=== PATIENT | female | born 1990 | race Caucasian/White ===

== ENCOUNTER → 2018-04-30 09:49 | Outpatient (CLI) | payer SELFPAY ==
[2018-04-30 10:48] VITALS: BP 107/72; PULSE 77; RESP 16; TEMP 36.7; O2SAT 98; BMI 20.2
--- NOTE | 2018-04-30 11:42 | HTC.HP4 ---
- Problem List (1) Von Willebrand disease, type I Status: Chronic Subjective Date of Service:: 04/30/18 Chief Complaint: VWD annual follow-up History of Present Illness: VWD, type I annual follow-up. Give May 2017, needed to use factor due to bladder injury during childbirth, bleeding was severe enough to require blood transfusion. These records not available, requested from [facility]. Health History: Past Medical History Past Medical History: Bleeding disorder Other Past Medical History: WILLEBRANDS Past Surgical History Surgical: section Family History Paternal Past Medical History: Unknown Maternal Past Medical History: Unknown Past Medical History (Last Updated 04/30/18 @ 10:47 by Robyn Mayers) delivery delivered (Acute) Von Willebrand disease (Acute) Family History (Last Updated 04/30/18 @ 10:46 by Robyn Mayers) Brother Hemophilia B Father Hemophilia B Allergies/Adverse Reactions: Allergy/AdvReac Type Severity Reaction Status Date / Time aspirin Allergy Severe Other Verified 02/13/17 10:39 Risk Factors Social History Smoking Status Never smoker Tobacco Risk Data: Tobacco Risk Smoking Status Never smoker Type of tobacco: Smokeless tobacco usage: Items/Day: Year started: Years used: Counseled to quit/cut down: Reason for no counseling performed: Reason for no pharmacotherapy: Tobacco use comments: Passive smoke exposure: Substance Risk Drug use: No Caffeine use [drinks/day]: Alcohol use: No Type of alcohol: Drinks per day: Has patient felt the need to cut down: Has the patient been annoyed by complaints: Has the patient felt guilty about drinking: Has the patient needed an eye manager statistics in the mornings: Comments: Review of Systems Constitutional:: Denies: Fever, Sweats, Weight loss, Appetite change, Chills Cardiovascular:: Denies: Chest pain, Palpitations, Dyspnea on exertion, Orthopnea, PND, Shortness of breath Respiratory: Denies: Cough, Hemoptysis, Shortness of Breath, Wheezing Gastrointestinal:: Denies: Abdominal pain, Nausea, Vomiting, Diarrhea, Constipation, Hematochezia Genitourinary: Denies: Dysuria, Hematuria, 15, Flank pain Musculoskeletal:: Denies: Back pain, Myalgia, Arthralgia Skin: Denies: Rash, Skin Changes, Wounds Neurological:: Denies: Headache, Dizziness, Visual changes, Tinnitus, Hearing loss Psychiatric: Denies: Anxiety, Depression, Homicidal Ideations, Suicidal Ideations Vital Signs Height 4 ft 10.5 in Weight: 44.815 kg Weight in Pounds 98.8 lbs Pulse Ox 98 Temperature 98.1 F Pulse Rate 77 Respiratory Rate 16 Blood Pressure 107/72 Blood Pressure Position Sitting - Physical Exam General: Alert, Oriented x3, No apparent distress HEENT: Atraumatic, PERRLA, EOMI, Normocephalic Oropharynx:: Dry mucosa Neck:: Supple, Trachea midline. Negative for: JVD, bilateral Cardiac:: Regular rate, Regular rhythm, Normal S1, Normal S2. Negative for: Murmur Lungs: Clear to auscultation, Excusion symmetrical. Negative for: Rhonchi, Wheezes Abdomen:: Soft, Non-tender, Non-distended. Negative for: Hepatosplenomegaly Extremities:: Negative for: Cyanosis, Edema Neurological: Neuro grossly intact Skin:: Negative for: Lesions, Rash, Petechiae, Ecchymosis Psychiatric:: Appropriate affect, Euthymic Lymphatics:: Negative for: Cervical lymphadenopathy, Supraclavicular lymphadenopathy, Axillary lymphadenopathy Assessment and Plan VWD annual screening visit. Reviewed: - On-demand therapy. - Appropriate oral hygiene and regular dental care is essential. - An appropriate exercise regimen encouraged for maintenance of a healthy weight, cardiovascular risk reduction, and positive effects on strength, flexibility, balance, joint stabilization, bone density, socialization, and psychological health. - Medicines that increase the risk of bleeding should be avoided namely anticoagulants, aspirin, and other nonsteroidal anti-inflammatory drugs (NSAIDs). - Herbal remedies and [id number] supplements such as fish oil, may increase bleeding risk. - Pain can be treated with local measures (eg, cold packs, immobilization, splinting), and acetaminophen. - Cardiovascular disease prevention : focus on diet, exercise, smoking avoidance, and control of hypertension and hypercholesterolemia. - Planning for invasive procedures and elective surgery. Patient was also evaluated by the Hemophilia multidisciplinary team on site and Dr Frederick via video conferencing. Primary Care Provider: Doc Viera Referring Provider:
--- OUTSIDE RECORDS SUMMARY | 2018-06-15 23:58 | XMS RPT_ITS ---
:1990 Author Organization OHIP Care Team Providers Name Role Phone CORRINA YUNG, DR. KAT García Primary Care Unavailable JESUS COOK DO Attending Unavailable TENISHA CASTANEDA MD Referring Unavailable LORE HERNANDEZ Attending Unavailable CORRINA YUNG, DR. KAT García Primary Care Unavailable CORRINA YUNG, DR. KAT García Primary Care Unavailable DANNI CRENSHAW, ARLETTE Newby Admitting Unavailable DANNI CRENSHAW, ARLETTE Newby Attending Unavailable ELISE FLEMING MD Consulting Unavailable RL SALDANA DO Consulting Unavailable OB, OB CLINIC Consulting Unavailable MERCEDES ARIZA MD Consulting Unavailable ROSANNA YUNG, DR. KEYA Mcintyre Consulting Unavailable KAT HOUSER Primary Care Unavailable Julisa Mast Attending Unavailable Pro, Julisa Attending Unavailable KAT HOUSER Primary Care Unavailable Julisa Mast Consulting Unavailable ALVERTO HECK M.D. Attending Unavailable KIARA JAMES Attending Unavailable KIARA JAMES Consulting Unavailable PROBLEMS PROBLEMS DATE TYPE CONDITION / CODE ATTENDING STATUS SOURCE 07/22/2017 Admitting Other specified BETHEL [facility] Diagnosis noninflammatory [facility] disorders of vagina Repository / N89.8(ICD-10) 06/27/2017 Admitting Unknown / UMANG, [facility] diagnosis UNK(Unknown) ALVERTO [facility] Repository PROCEDURES PROCEDURES No Procedure Records FoundRESULTS RESULTS C: OFFICE NOTE Observed: 04/30/2018 Status: F Source: [place] 11:45 AM [facility] REPOSITORY [facility] Medical Records Department [address] [place] [address] [facility]: Office Note 04/30/18 1142 MR#: [id number] Acct: [id number] Name: JESSICA ADAMS I Rep #: [id number] : 1990 28 From: Julisa Mast MD PCP: Kat Houser MD Status: REG CLI Y Location: OMD - Problem List (1) Von Willebrand disease, type I Status: Chronic Subjective Date of Service:: 04/30/18 Chief Complaint: VWD annual follow-up History of Present Illness: VWD, type I annual follow-up. Give May 2017, needed to use factor due to bladder injury during childbirth, bleeding was severe enough to require blood transfusion. These records not available, requested from [facility]. Health History: Past Medical History Past Medical History: Bleeding disorder Other Past Medical History: WILLEBRANDS Past Surgical History Surgical: section Family History Paternal Past Medical History: Unknown Maternal Past Medical History: Unknown Past Medical History (Last Updated 04/30/18 @ 10:47 by Robyn Mayers) delivery delivered (Acute) Von Willebrand disease (Acute) Family History (Last Updated 04/30/18 @ 10:46 by Robyn Mayers) Brother Hemophilia B Father Hemophilia B Allergies/Adverse Reactions: Allergy/AdvReac Type Severity Reaction Status Date / Time aspirin Allergy Severe Other Verified 02/13/17 10:39 Risk Factors Social History Smoking Status Never smoker Tobacco Risk Data: Tobacco Risk Smoking Status Never smoker Type of tobacco: Smokeless tobacco usage: Items/Day: Year started: Years used: Counseled to quit/cut down: Reason for no counseling performed: Reason for no pharmacotherapy: Tobacco use comments: Passive smoke exposure: Substance Risk Drug use: No Caffeine use [drinks/day]: Alcohol use: No Type of alcohol: Drinks per day: Has patient felt the need to cut down: Has the patient been annoyed by complaints: Has the patient felt guilty about drinking: Has the patient needed an eye sumatra opener in the mornings: Comments: Review of Systems Constitutional:: Denies: Fever, Sweats, Weight loss, Appetite change, Chills Cardiovascular:: Denies: Chest pain, Palpitations, Dyspnea on exertion, Orthopnea, PND, Shortness of breath Respiratory: Denies: Cough, Hemoptysis, Shortness of Breath, Wheezing Gastrointestinal:: Denies: Abdominal pain, Nausea, Vomiting, Diarrhea, Constipation, Hematochezia Genitourinary: Denies: Dysuria, Hematuria, 15, Flank pain Musculoskeletal:: Denies: Back pain, Myalgia, Arthralgia Skin: Denies: Rash, Skin Changes, Wounds Neurological:: Denies: Headache, Dizziness, Visual changes, Tinnitus, Hearing loss Psychiatric: Denies: Anxiety, Depression, Homicidal Ideations, Suicidal Ideations Vital Signs Height 4 ft 10.5 in Weight: 44.815 kg Weight in Pounds 98.8 lbs Pulse Ox 98 - Physical Exam General: Alert, Oriented x3, No apparent distress HEENT: Atraumatic, PERRLA, EOMI, Normocephalic Oropharynx:: Dry mucosa Neck:: Supple, Trachea midline. Negative for: JVD, bilateral Cardiac:: Regular rate, Regular rhythm, Normal S1, Normal S2. Negative for: Murmur Lungs: Clear to auscultation, Excusion symmetrical. Negative for: Rhonchi, Wheezes Abdomen:: Soft, Non-tender, Non-distended. Negative for: Hepatosplenomegaly Extremities:: Negative for: Cyanosis, Edema Neurological: Neuro grossly intact Skin:: Negative for: Lesions, Rash, Petechiae, Ecchymosis Psychiatric:: Appropriate affect, Euthymic Lymphatics:: Negative for: Cervical lymphadenopathy, Supraclavicular lymphadenopathy, Axillary lymphadenopathy Assessment and Plan VWD annual screening visit. Reviewed: - On-demand therapy. - Appropriate oral hygiene and regular dental care is essential. - An appropriate exercise regimen encouraged for maintenance of a healthy weight, cardiovascular risk reduction, and positive effects on strength, flexibility, balance, joint stabilization, bone density, socialization, and psychological health. - Medicines that increase the risk of bleeding should be avoided namely anticoagulants, aspirin, and other nonsteroidal anti-inflammatory drugs (NSAIDs). - Herbal remedies and jfuq-fso-vbxjvbr supplements such as fish oil, may increase bleeding risk. - Pain can be treated with local measures (eg, cold packs, immobilization, splinting), and acetaminophen. - Cardiovascular disease prevention : focus on diet, exercise, smoking avoidance, and control of hypertension and hypercholesterolemia. - Planning for invasive procedures and elective surgery. Patient was also evaluated by the Hemophilia multidisciplinary team on site and Dr Frederick via video conferencing. Primary Care Provider: Kat Houser Referring Provider: 04/30/18 1145 <Electronically signed by Julisa Mast MD> Date Julisa Mast MD Cosigner Signature (if applicable): Date CC: Signed PROGRESS Observed: 10/29/2017 Status: COMPLETED Source: [place] 6:18 PM [facility] REPOSITORY [facility] ID: [id number] Author: Provider [facility] [place] Service: (none) Author Type: Physician Type: Progress Notes Filed: 03/18/2018 6:18 PM Note Text: [facility] [place] [address] FIRST CARE REPORT Patient: JESSICA ADAMS I KIARA JAMESNSofia [id number] 27 F Status: REG POV Date of Service: 10/29/17 Report Date AND Time: 10/29/17 1818 HPI History Of Present Illness Chief Complaint Physician Exam (FC) CC History Pt comes in today stating she had an IUD placed a month or so ago and she believes it is now causing pelvic pain/pressure. No UTI symptoms, no discharge Explained to the patient that we have no ability to determine where her pelvic pain is coming from. Recommend she follow up with her WINE FERMENTER or go to the ER for further evaluation. Pt elected to go to the ER. Vital Signs no vitals taken Medications Reported Medications Multivitamin/Mineral* ( Plus*) 1 TAB PO QDAY Multivitamin/Mineral* ( Plus*) 1 TAB PO QDAY #30 TAB Desmopressin Acetate (Stimate Nasal [place]) Allergies Coded Allergies: MDX - Nitrofurantoin (From MACROBID) (Mild, ABD PAIN 06/02/13) MDX - Promethazine (From Phenergan) (Mild, PSYCHOSIS 11/25/11) Patient Health History Medical Problems Pelvic pain Social History Problems 2 OARRS Accessed and Reviewed NO Impression And Plan Special Instructions I recommend you go to the ER for further evaluation Diagnosis 1. Pelvic pain <Electronically signed by Jyoti FRANKNNathanielP.> 10/29/17 1821 KIARA JAMESNNathanielP. << Signature on File>> Reported By: KIARA JAMESN.PNathaniel Signed By: KIARA JAMESNSofia Tests performed at: [address] [address] Observed: 07/22/2017 Status: F Source: [facility] VAGDNA 2:40 PM FOUNDATION REPOSITORY . MICRO - Microbiology PROCEDURE: Affirm Pathogens DNA Direct Probe [*1] SOURCE: Vaginal Fluid BODY SITE: Vagina COLLECTED DATE/TIME: 07/22/2017 14:40 EST RECEIVED DATE/TIME: 07/22/2017 21:14 EST START DATE/TIME: 07/22/2017 21:15 EST FREE TEXT SOURCE: FINAL REPORTS Final Report [] Verified Date/Time/Personnel: 07/23/2017 14:14 EST Gardnerella vaginalis DNA Probe Positive Trichomonas vaginalis DNA Probe Negative Grisel species DNA Probe Negative Performing Locations *1: This test was performed at: [facility], [address] [place] [address], [address] [place] [address] Performed By: #### AFFIRM #### [place] [address] CBC Collected: 06/27/2017 Status: F Source: [facility] 10:12 AM HOSPITAL REPOSITORY TYPE CODE TESTS RESULT OUT OF RANGE REFERENCE UNITS LAB L200.0100 4.5-10.0 x10(3) Normal WBC 5.5 LAB L200.0200 3.30-5.00 x10(6) Normal RBC 4.42 LAB L200.0210 12.0-16.0 g/dL Normal HGB 13.6 LAB L200.0220 36.0-48.0 % Normal HCT 40.0 LAB L200.0230 80.0-99.0 fl Normal MCV 90.3 LAB L200.0240 28.5-32.9 pg Normal MCH 30.7 LAB L200.0250 33.0-36.0 g/dL Normal MCHC 34.0 LAB L200.0260 12.5-15.7 % Normal RDW 13.4 LAB L200.0270 150-450 X10(3) High PLT 476 LAB L200.0290 7.5-9.5 fl Low MPV 7.1 LAB L200.0300 45.0-73.0 % Normal NEUT% 61.5 LAB L200.0310 16.0-48.0 % Normal LYMPH% 29.4 LAB L200.0320 4.3-11.2 % Normal MONO% 4.7 LAB L200.0330 0.5-4.9 % Normal EOS% 3.3 LAB L200.0340 0.0-1.0 % High BASO% 1.1 LAB L200.0350 1.40-6.50 x10(3) Normal NEUT# 3.40 LAB L200.0360 1.00-3.50 x10(3) Normal LYMPH# 1.60 LAB L200.0370 0.30-0.80 x10(3) Normal MONO# 0.30 LAB L200.0380 0.00-0.54 x10(3) Normal EOS# 0.20 LAB L200.0390 0.00-0.10 x10(3) Normal BASO# 0.10 Performed By: #### L200.0010 #### [facility] [address] [place] [id number] CMP Collected: 06/27/2017 Status: F Source: [facility] 10:12 AM HOSPITAL REPOSITORY TYPE CODE TESTS RESULT OUT OF RANGE REFERENCE UNITS LAB L100.0060 74-106 mg/dL GLUCOSE Normal 84 LAB L100.0110 6-20 mg/dL BUN Normal 12 LAB L100.0131 0.50-0.90 mg/dL Normal CREATININE 0.59 LAB L100.0140 8.6-10.0 mg/dL CALCIUM Normal 9.2 LAB L100.0150 135-145 mmol/L SODIUM Normal 143 LAB L100.0160 3.5-5.0 mmol/L Normal POTASSIUM 4.4 LAB L100.0170 98-107 mmol/L CHLORIDE Normal 101 LAB L100.0180 22-29 mmol/L TCO2 Normal 29 LAB L100.0185 15-22 mmol/L ANION Normal GAP 17.4 LAB L100.0200 6.4-8.3 g/dL TOTAL Normal PROTEIN 6.9 LAB L100.0210 3.5-5.2 g/dL ALBUMIN Normal 4.3 LAB L100.0220 0.2-1.2 mg/dL TOTAL Normal BILIRUBIN <0.2 LAB L100.0240 5-32 U/L AST Normal 15 LAB L100.0250 5-33 U/L ALT Normal 16 LAB L100.0260 35-105 U/L ALK. Normal PHOS 80 LAB L100.0262 1.5-4.5 g/dL Normal GLOBULIN,CALC 2.6 LAB L100.0264 1.1-2.5 A:G Normal RATIO 1.65 LAB L100.0274 eGFR Normal nonAFR Mary > 60 ml/Min/1.73m 2 LAB L100.0275 eGFR if Normal AFR MARY > 60 ml/min/1.73m 2 Result Comment: eGFR >= 60 Indicates normal kidney function. * eGFR IS AN ESTIMATE * (AFR MARY = ) (non-AFR AM = NON-) MDRD calculation used in the eGFR should not be used to dose medications. For further limitations of the eGFR please refer to the Physician Website or the National Kidney Disease Education Program website (www.nkdep.nih.gov). Performed By: #### L100.0005, L100.0370 #### [facility] [address] [place] [id number] LDH Collected: 06/27/2017 Status: F Source: [facility] 10:12 AM HOSPITAL REPOSITORY TYPE CODE TESTS RESULT OUT OF RANGE REFERENCE UNITS LAB L100.0370 135-214 U/L Normal LDH 171 Performed By: #### L100.0005, L100.0370 #### [facility] [address] [place] [address] UA Collected: 06/18/2017 Status: F Source: [facility] 12:31 AM [facility] REPOSITORY TYPE CODE TESTS RESULT OUT OF RANGE REFERENCE UNITS LAB SPCUA(LOIN C) UA Specimen Type Catheter LAB CLRUA(LOIN C) UA Abnormal Color Red LAB APPUA(LOIN C) UA Abnormal Appear Cloudy LAB SGUA(LOINC ) UA Abnormal Spec Grav <=1.005 Result Comment: The specimen was grossly bloody. The chemical analysis was performed on a centrifuged specimen containing little or no grossly identifiable blood. LAB GLUA(LOINC) Negative mg/dL UA Glucose Negative LAB BILUA(LOINC) Neg-Trace UA Bili Negative LAB KETUA(LOINC) Negative mg/dL UA Ketones Negative LAB BLDUA(LOINC) Neg-Trace UA Blood Abnormal Large LAB PHUA(LOINC) 5.0 - 8.0 UA pH 6.0 LAB PROUA(LOINC) Negative mg/dL UA Abnormal Protein 100 LAB UROUA(LOINC) E.U./dL UA Urobilinogen 0.2 LAB NITUA(LOINC) Negative UA Nitrite Negative LAB LEUUA(LOINC) Negative UA Leuk Est Trace Performed By: #### UA, UAMIC #### [place] [address] UAMIC Collected: 06/18/2017 Status: F Source: [facility] 12:31 AM [facility] REPOSITORY TYPE CODE TESTS RESULT OUT OF RANGE REFERENCE UNITS LAB RBCUA(LOIN 0-2 /hpf C) UA Abnormal RBC 50-100 LAB WBCUA(LOIN 0-5 /hpf C) UA WBC Rare LAB EPIUA(LOIN 0-20 /hpf C) UA Squam Negative Epithelial LAB BACUA(LOIN Negative /hpf C) UA Abnormal Bacteria 1+ LAB CRBCU(LOIN /hpf C) UA Abnormal Crenated RBCs 10-20 Performed By: #### UA, UAMIC #### [place] [address] CBC Collected: 06/10/2017 Status: F Source: [facility] 3:57 AM [facility] REPOSITORY TYPE CODE TESTS RESULT OUT OF REFERENCE UNITS RANGE LAB WBC(LOINC) 4.50-10.80 10 3/mcL High WBC 11.80 LAB RBCCT(LOINC 4.10-5.30 10 6/mcL ) Low RBC 3.33 LAB HGB(LOINC) 12.0-16.0 G/dL Low Hgb 10.2 LAB HCT(LOINC) 34.0-46.0 % Low Hct 29.9 LAB MCV(LOINC) 80.0-99.0 fL MCV 89.8 LAB MCH(LOINC) 27.0-33.0 pg MCH 30.7 LAB MCHC(LOINC) 32.0-36.0 G/dL MCHC 34.2 LAB RDW(LOINC) 11.5-15.5 % RDW 14.3 LAB PLT(LOINC) 150-450 10 3/mcL Platelet 201 LAB MPV(LOINC) 6.6-10.5 fL MPV 7.3 Performed By: #### CBC, MARYLU, ANEU #### [place] [address] .AUTO DIFF Collected: 06/10/2017 Status: F Source: [facility] 3:57 AM [facility] REPOSITORY TYPE CODE TESTS RESULT OUT OF REFERENCE UNITS RANGE LAB LEONCIO(LOINC) 50.0-75.0 % High Neutrophil % 82.0 LAB LYM(LOINC) 20.0-40.0 % Low Lymphocyte % 10.4 LAB MON(LOINC) 2.0-13.0 % Monocyte % 6.2 LAB EO(LOINC) 0.0-6.0 % Eosinophil % 1.1 LAB BAS(LOINC) 0.0-2.5 % Basophil % 0.3 LAB ABLYM(LOIN 0.90-4.32 10 3/mcL C) Lymphocyte, 1.20 Absolute LAB KARMA(LOINC 0.09-1.40 10 3/mcL ) Monocyte, 0.70 Absolute LAB AEOS(LOINC 0.00-0.65 10 3/mcL ) Eosinophil, 0.10 Absolute LAB ABAS(LOINC 0.00-0.27 10 3/mcL ) Basophil, 0.00 Absolute Performed By: #### MARYLU HAY, ANEU #### [place] [address] .NEUABS Collected: 06/10/2017 Status: F Source: [facility] 3:57 AM [facility] REPOSITORY TYPE CODE TESTS RESULT OUT OF REFERENCE UNITS RANGE LAB ANEU(LOINC) 2.25-8.10 10 3/mcL High Neutrophil, 9.70 Absolute Performed By: #### CBC, MARYLU, ANEU #### [place] [address] Observed: 06/09/2017 Status: F Source: [facility] CTRRX 11:43 PM [facility] REPOSITORY . MICRO - Microbiology PROCEDURE: Culture Transfusion Reaction [*1] SOURCE: Blood BODY SITE: COLLECTED DATE/TIME: 06/09/2017 23:43 EST RECEIVED DATE/TIME: 06/09/2017 23:45 EST START DATE/TIME: 06/09/2017 23:45 EST FREE TEXT SOURCE: [id number] FINAL REPORTS Final Report [] Verified Date/Time/Personnel: 06/14/2017 23:59 EST Culture: No growth at 5 days. PRELIMINARY REPORTS Preliminary Report [] Verified Date/Time/Personnel: 06/10/2017 01:59 EST Culture has been received in lab and is no growth to date. Routine cultures are held 5 days. STAINS GS [] Verified Date/Time/Personnel: 06/10/2017 00:01 EST No organisms seen. Performing Locations *1: This test was performed at: [facility], [address] [place] [address], [address] [place] [address] Performed By: #### CTRRX #### [place] [address] CBC Collected: 06/08/2017 Status: F Source: [facility] 5:52 AM [facility] REPOSITORY TYPE CODE TESTS RESULT OUT OF REFERENCE UNITS RANGE LAB WBC(LOINC) 4.50-10.80 10 3/mcL WBC 9.80 LAB RBCCT(LOINC 4.10-5.30 10 6/mcL ) Low RBC 4.02 LAB HGB(LOINC) 12.0-16.0 G/dL Hgb 12.6 LAB HCT(LOINC) 34.0-46.0 % Hct 36.4 LAB MCV(LOINC) 80.0-99.0 fL MCV 90.6 LAB MCH(LOINC) 27.0-33.0 pg MCH 31.4 LAB MCHC(LOINC) 32.0-36.0 G/dL MCHC 34.7 LAB RDW(LOINC) 11.5-15.5 % RDW 13.5 LAB PLT(LOINC) 150-450 10 3/mcL Platelet 231 LAB MPV(LOINC) 6.6-10.5 fL MPV 7.7 Performed By: #### CBC, ADIFF, ANEU, ABORH, ANTIS #### [place] [address] .AUTO DIFF Collected: 06/08/2017 Status: F Source: [facility] 5:52 AM [facility] REPOSITORY TYPE CODE TESTS RESULT OUT OF REFERENCE UNITS RANGE LAB LEONCIO(LOINC) 50.0-75.0 % High Neutrophil % 76.0 LAB LYM(LOINC) 20.0-40.0 % Low Lymphocyte % 16.6 LAB MON(LOINC) 2.0-13.0 % Monocyte % 6.1 LAB EO(LOINC) 0.0-6.0 % Eosinophil % 0.8 LAB BAS(LOINC) 0.0-2.5 % Basophil % 0.5 LAB ABLYM(LOIN 0.90-4.32 10 3/mcL C) Lymphocyte, 1.60 Absolute LAB KARMA(LOINC 0.09-1.40 10 3/mcL ) Monocyte, 0.60 Absolute LAB AEOS(LOINC 0.00-0.65 10 3/mcL ) Eosinophil, 0.10 Absolute LAB ABAS(LOINC 0.00-0.27 10 3/mcL ) Basophil, 0.10 Absolute Performed By: #### CBC, ADIFF, ANEU, ABORH, ANTIS #### [place] [address] .NEUABS Collected: 06/08/2017 Status: F Source: [facility] 5:52 AM [facility] REPOSITORY TYPE CODE TESTS RESULT OUT OF REFERENCE UNITS RANGE LAB ANEU(LOINC) 2.25-8.10 10 3/mcL Neutrophil, 7.50 Absolute Performed By: #### CBC, ADIFF, ANEU, ABORH, ANTIS #### [place] [address] TABO Collected: 06/08/2017 Status: F Source: [facility] 5:52 AM [facility] REPOSITORY TYPE CODE TESTS RESULT OUT OF RANGE REFERENCE UNITS LAB ABORH(LOINC ) Unknown ABO/Rh A NEG Interp Performed By: #### CBC, ADIFF, ANEU, ABORH, ANTIS #### [place] [address] TABS Collected: 06/08/2017 Status: F Source: [facility] 5:52 AM [facility] REPOSITORY TYPE CODE TESTS RESULT OUT OF REFERENCE UNITS RANGE LAB ANST(LOINC ) Antibody Negative ABSC Screen Tango Performed By: #### CBC, ADIFF, ANEU, ABORH, ANTIS #### [place] [address] FIB Collected: 06/08/2017 Status: F Source: [facility] 5:52 AM [facility] REPOSITORY TYPE CODE TESTS RESULT OUT OF REFERENCE UNITS RANGE LAB FIB(LOINC) 250-550 mg/dL High Fibrinogen >700 Performed By: #### FIB #### [place] [address] ALLERGIES ALLERGIES DATE TYPE / CODE NAME / CODE REACTION SEVERITY SOURCE 04/30/2018 Drug aspirin/F006 Other [facility] Allergy/4160 [id number]([facility] 52676(SNOMED M) Repository CT) ENCOUNTERS ENCOUNTERS ADMIT/DISCHARGE ACCOUNT NUMBER ADMITTING ENCOUNTER LOCATION SOURCE CLASS 04/30/2018 [id number] Ambulatory BMSBuilding: [place] BMS.CF.[facility] Repository 04/30/2018 [id number] Ambulatory [facility] Hospital ding:[facility]D Repository 10/29/2017 [id number] Ambulatory UNIBuilding: [facility] Repository 07/22/2017/07/27/19 [id number] Ambulatory [address] Health ilding:[facility] OBGYN Repository 06/27/2017 [id number] Ambulatory UNIBuilding: [facility] Repository 06/17/2017/06/18/19 [id number] Emergency ABuilding:ER [place] [address] [place] [address] Repository 06/08/2017/06/11/19 [id number] DANNI CRENSHAW, Inpatient ABuilding:[facility] [place] Encounter RPRoom: [place] [id number]: A [facility] Repository PAYERS PAYERS ENCOUNTER GUARANTOR PAYER SUBSCRIBER SOURCE 04/30/2018 MARNITA I Primary NOT GIVENUNK [place] [id number] SR Insurance:SELF PAY [place] [id number]: [phone] Number: Effective Repository [phone] () Date:2018-04-30 04/30/2018 MARNITA I Primary NOT GIVENUNK [place] [id number] SR Insurance:SELF PAY [address] [address]Uzc: [phone] Number: Effective Repository [phone] () Date:2017-11-13 10/29/2017 MARNITA I Primary MARNITA I [facility] [id number] STATE Insurance:SELF PAY [facility] [address] [place] [address]Pvj: Number: [id number] (HP) Date: 07/22/2017 [facility] YODERDOB: Insurance:SELF YODERDOB: [facility] PAYPolicy Number: [id number] Repository [address] Effective [address] [facility] [place] Date:2017-07-223[place], [place] [address]Ulg: [phone] Name:[phone]: [phone] (HP)Tel: [phone] (HP) (WP) [phone] (WP) 06/27/2017JulNITA I Primary [facility] [id number] STATE Insurance:SELF PAY [facility] [address] INS[facility] Repository [place] [address]Wmy: Number: [id number] (HP) Date: 06/17/2017 [facility] YODERDOB: Insurance:SELF YODERDOB: [facility] PAYPolicy Number: [id number] Repository [address] Effective [address] [place] Date:2017-06-17 [facility] [place] [address]Yrz: [id number] Name:[phone]: [phone] (HP)Tel: [phone] (HP) (WP) [phone] (WP) 06/08/2017JulTA [facility] YODERDOB: Insurance:SELF YODERDOB: [facility] PAYPolicy Number: [id number] Repository [address] [place] Date:2017-06-01 [facility] [place] [address]Hep: [phone] Name:[phone]: [phone] (HP)Tel: [phone] (HP) (WP) [phone] (WP)
== END ==
PROVIDERS: Family Provider Family Medicine; PCP Family Medicine; Visit Provider Internal Medicine Hematology & Oncology
DX: D68.0 Von Willebrand disease (principal)

== ENCOUNTER → 2019-04-29 11:45 | Outpatient (CLI) | payer SELFPAY ==
[2018-04-30 10:48] VITALS: BMI 20.2
[2019-04-29 12:23] VITALS: BP 106/75; PULSE 79; RESP 14; TEMP 37; O2SAT 98; BMI 19.5
--- NOTE | 2019-04-29 13:00 | WMO.HTC_ITS ---
Problem List (1) Von Willebrand disease, type I Status: Chronic Subjective Date of Service:: 04/29/19 Chief Complaint: F/u for VWD. History of Present Illness: 29y.o.woman with VWD type I, comes for follow up. She had wisdom teeth extract ion, did factor replacement then. Periods are fine, has not use Stimate. Health History: Past Medical History Past Medical History: Bleeding disorder Other Past Medical History: WILLEBRANDS Past Surgical History Surgical: section Family History Paternal Past Medical History: Unknown Maternal Past Medical History: Unknown Past Medical History (Last Updated 04/30/18 @ 10:47 by Robyn Mayers) delivery delivered (Acute) Von Willebrand disease (Acute) Family History (Last Updated 04/30/18 @ 10:46 by Robyn Mayers) Brother Hemophilia B Father Hemophilia B Social History Social History: No changes Smoking Status Never smoker Allergies/Adverse Reactions: Allergy/AdvReac Type Severity Reaction Status Date / Time aspirin Allergy Severe Other Verified 04/30/18 12:14 Risk Factors Social History Social History: No changes Smoking Status Never smoker Tobacco Risk Data: Tobacco Risk Smoking Status Never smoker Type of tobacco: Smokeless tobacco usage: Never Items/Day: Year started: Years used: Counseled to quit/cut down: Reason for no counseling performed: Reason for no pharmacotherapy: Tobacco use comments: Passive smoke exposure: No Substance Risk Drug use: No Caffeine use [drinks/day]: Alcohol use: No Type of alcohol: Drinks per day: Has patient felt the need to cut down: Has the patient been annoyed by complaints: Has the patient felt guilty about drinking: 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: Comments: Review of Systems Constitutional:: Denies: Fever, Sweats, Weight loss, Appetite change, Chills Cardiovascular:: Denies: Chest pain, Palpitations, Dyspnea on exertion, Orthopnea, PND, Shortness of breath Respiratory: Denies: Cough, Hemoptysis, Shortness of Breath, Wheezing Gastrointestinal:: Denies: Abdominal pain, Nausea, Vomiting, Diarrhea, Constipation, Hematochezia Genitourinary: Denies: Dysuria, Hematuria, 15, Flank pain Musculoskeletal:: Denies: Back pain, Myalgia, Arthralgia Skin: Denies: Rash, Skin Changes, Wounds Neurological:: Denies: Headache, Dizziness, Visual changes, Tinnitus, Hearing loss Psychiatric: Denies: Anxiety, Depression, Homicidal Ideations, Suicidal Ideat ions Vital Signs Height 4 ft 11 in Weight: 43.817 kg Weight in Pounds 96.6 lbs Pulse Ox 98 Temperature 98.6 F Pulse Rate 79 Respiratory Rate 14 Blood Pressure 106/75 Blood Pressure Position Sitting - Physical Exam General: Alert, Oriented x3, No apparent distress HEENT: Atraumatic, PERRLA, EOMI, Normocephalic Oropharynx:: Dry mucosa Neck:: Supple, Trachea midline. Negative for: JVD, bilateral Cardiac:: Regular rate, Regular rhythm, Normal S1, Normal S2. Negative for: Murmur Lungs: Clear to auscultation, Excusion symmetrical. Negative for: Rhonchi, Wheezes Abdomen:: Bowel sounds x 4, Soft, Non-tender, Non-distended. Negative for: Hepatosplenomegaly Extremities:: Negative for: Cyanosis, Edema Neurological: Neuro grossly intact Skin:: Negative for: Lesions, Rash, Petechiae, Ecchymosis Psychiatric:: Appropriate affect, Euthymic Lymphatics:: Negative for: Cervical lymphadenopathy, Supraclavicular lymphadenopathy, Axillary lymphadenopathy Therapy ROM Screening - Subjective Subjective:: pt had 4 wisdom teeth removed in july- pt states she is doing fine- has no concerns at this time. - Objective Right shoulder flex:: 150 Left shoulder flex:: 155 Right shoulder extension:: 45 Left shoulder extension:: 50 Right elbox flex/ext:: 145/0 Left elbox flex/ext:: 145/0 Right elbow circumference:: NT sweater on Left elbow circumference:: NT sweater on Right forearm sup/pron:: WNL Left forearm sup/pron:: WNL Right knee flexion:: 120 Left knee flexion:: 120 Right knee circumference:: NT dress on Left knee circumference:: NT dress on Right ankle dorsiflexion:: 25 Left ankle dorsiflexion:: 25 Right ankle Plan-flex:: 45 Left ankle Plan-flex:: 45 Right ankle circumference:: 18cm Left ankle circumference:: 19cm Right hip flexion:: 85 Left hip flexion:: 85 Right hip extension:: 20 Left hip extension:: 20 - Assessment Assessment:: Pt demo ROM WNL no concerns at this time. Assessment and Plan Von Willebrand Disease type I, clinically stable. Plan is to continue expectant management. RTC 1 year. Primary Care Provider: No Primary Care Phys Referring Provider:
== END ==
PROVIDERS: Visit Provider Internal Medicine Medical Oncology
DX: D68.0 Von Willebrand disease (principal)